=== PATIENT | male | born 1965 | race Hispanic/Latino ===

== ENCOUNTER 2017-07-29 18:20 | Inpatient (IN) | payer BC ==
[~2017-07-29] VITALS: Ht 167.6 cm; Wt 90.7 kg
[2017-07-29 19:04] LABS: EOSINOPHILS # (AUTO) 0.1 (0.0-0.4); HEMATOCRIT 35.9 % (38.2-49.6); HEMOGLOBIN 13.2 g/dL (14.0-18.0); LYMPHOCYTES # (AUTO) 1.8 (1.0-3.2); LYMPHOCYTES % 50.1 % (18.0-39.1); MEAN CORPUSCULAR HEMOGLOBIN 31.7 pg (28-32); MEAN CORPUSCULAR HGB CONC 36.8 g/dL (31-35); MEAN CORPUSCULAR VOLUME 86.3 fL (81-99); MONOCYTES # (AUTO) 0.3 (0.2-0.8); NEUTROPHILS # (AUTO) 1.4 (2.1-6.9); NEUTROPHILS % 40.6 % (38.7-80.0); RED BLOOD COUNT 4.16 x10e6/uL (4.3-5.7); RED CELL DISTRIBUTION WIDTH 13.5 % (11.7-14.4)
[2017-07-29 19:10] LABS: INR 1.03; PLATELET COUNT 3 x10e3/uL (140-360); PROTHROMBIN TIME 12.7 seconds (11.9-14.5)
[2017-07-29 19:11] LABS: PARTIAL THROMBOPLASTIN TIME 24.1 seconds (23.8-35.5)
[2017-07-29 19:21] LABS: ALANINE AMINOTRANSFERASE 64 IU/L (0-55); ALBUMIN 3.8 g/dL (3.5-5.0); ALBUMIN/GLOBULIN RATIO 1.7 (0.8-2.0); ALKALINE PHOSPHATASE 72 IU/L (40-150); ANION GAP 10.9 mmol/L (8-16); BLOOD UREA NITROGEN 21 mg/dL (7-26); BUN/CREATININE RATIO 26 (6-25); CALCIUM 8.8 mg/dL (8.4-10.2); CARBON DIOXIDE 26 mmol/L (22-29); CHLORIDE 105 mmol/L (98-107); CREATININE, SERUM 0.81 mg/dL (0.72-1.25); EST GLOMERULAR FILTRATION RATE > 60 ML/MIN (60-); GLUCOSE 103 mg/dL (74-118); MAGNESIUM 1.8 MG/DL (1.3-2.1); POTASSIUM 3.9 mmol/L (3.5-5.1); SODIUM 138 mmol/L (136-145)
[2017-07-29 19:33] LABS: RBC MORPHOLOGY COMMENT NORMAL
[2017-07-29 19:34] LABS: PLATELET ESTIMATE MARKEDLY DECREASED; PLATELET MORPHOLOGY COMMENT NORMAL
[2017-07-29 19:41] LABS: THYROID STIMULATING HORMONE 3.025 uIU/mL (0.350-4.940)
[2017-07-29] MEDS ORDERED: SODIUM CHLORIDE FLUSH 10 ML SYR INJ PRN (20:00)
[2017-07-29] MEDS ORDERED: ONDANSETRON HCL INJ 2 MG/ML VIAL IV PRN (20:00)
[2017-07-29 20:40] VITALS: BP 132/78
[2017-07-29] MEDS ORDERED: SODIUM CHLORIDE 0.9% 250ML 250 ML ONE (21:35)
[2017-07-30] VITALS (7 sets, daily range): BP systolic 106–130; BP diastolic 55–72
[2017-07-30 06:33] LABS: EOSINOPHILS # (AUTO) 0.1 (0.0-0.4); EOSINOPHILS % 3.1 % (0.0-6.0); HEMATOCRIT 31.8 % (38.2-49.6); HEMOGLOBIN 11.5 g/dL (14.0-18.0); LYMPHOCYTES # (AUTO) 0.9 (1.0-3.2); LYMPHOCYTES % 39.5 % (18.0-39.1); MEAN CORPUSCULAR HEMOGLOBIN 31.9 pg (28-32); MEAN CORPUSCULAR HGB CONC 36.2 g/dL (31-35); MEAN CORPUSCULAR VOLUME 88.1 fL (81-99); MONOCYTES # (AUTO) 0.2 (0.2-0.8); MONOCYTES % 8.3 % (4.4-11.3); NEUTROPHILS # (AUTO) 1.1 (2.1-6.9); NEUTROPHILS % 49.1 % (38.7-80.0); PLATELET COUNT 60 x10e3/uL (140-360); RED BLOOD COUNT 3.61 x10e6/uL (4.3-5.7); RED CELL DISTRIBUTION WIDTH 13.7 % (11.7-14.4)
[2017-07-30 07:00] LABS: ALANINE AMINOTRANSFERASE 58 IU/L (0-55); ALBUMIN 3.4 g/dL (3.5-5.0); ALBUMIN/GLOBULIN RATIO 1.5 (0.8-2.0); ALKALINE PHOSPHATASE 62 IU/L (40-150); ANION GAP 8.7 mmol/L (8-16); BLOOD UREA NITROGEN 20 mg/dL (7-26); BUN/CREATININE RATIO 25 (6-25); CALCIUM 8.2 mg/dL (8.4-10.2); CARBON DIOXIDE 27 mmol/L (22-29); CHLORIDE 106 mmol/L (98-107); CREATININE, SERUM 0.81 mg/dL (0.72-1.25); EST GLOMERULAR FILTRATION RATE > 60 ML/MIN (60-); GLUCOSE 98 mg/dL (74-118); POTASSIUM 3.7 mmol/L (3.5-5.1); SODIUM 138 mmol/L (136-145)
[2017-07-31] VITALS: BP 127/80
[2017-07-31 04:00] VITALS: BP 102/67
--- NOTE | 2017-07-31 04:34 | Consultation ---
DATE OF CONSULTATION: July 30, 2017 REQUESTING PHYSICIAN: Dr. Mariam Ragsdale SERVICE: Hematology-oncology. REASON FOR CONSULTATION: Evaluation and management of patient presented with severe thrombocytopenia and bruises. HISTORY OF PRESENTING ILLNESS: Mr. Marroquin is a very pleasant 52-year-old gentleman with no significant past medical history, who recently noted to have pain in his fingers bilaterally approximately 2 weeks ago. He did not seek medical attention and later on approximately a week ago, he developed bruises all over his body, which gradually got worsened and finally he presented to the primary care provider and underwent evaluation. His lab workup revealed severe thrombocytopenia, subsequently sent to the emergency department for further evaluation. In the ED, he underwent repeat lab work revealing white blood cell count of 3.5, hemoglobin 13.2, hematocrit 35.9, and platelet count of 3000. He was given platelet transfusion with good response with platelet count of 60,000. Hematology-oncology has been consulted to assist with the management. At present, he is lying comfortably, not in acute distress, breathing normally. He denies any nausea, vomiting, fever, chills, headache, blurring of vision, any genitourinary complaints. He also denies any history of rheumatologic disorder. His appetite is good and weight is stable. He denies any recent illness, travel, or sick contact. He also denies taking any [id number] or herbal medications. PAST MEDICAL HISTORY: None. PAST SURGICAL HISTORY: None. SOCIAL HISTORY: He denies history of smoking, alcohol use, or illicit drug use. He is [place] and lives in [place]. ALLERGIES: NO KNOWN DRUG ALLERGIES. CURRENT MEDICATIONS: Reviewed and as per electronic medical record. REVIEW OF SYSTEMS: Fourteen-point review of systems negative except as mentioned above in history of presenting illness. PHYSICAL EXAMINATION: VITAL SIGNS: Reviewed and as per electronic medical record. HEENT: PERRLA. Extraocular movements intact. Head atraumatic, normocephalic. NECK: Supple. CVS: S1 and S2 audible. RESPIRATORY: Decreased bilateral air entry. ABDOMEN: Positive bowel sounds. EXTREMITIES: Negative edema. NEURO: Patient is alert, awake, oriented. SKIN: Scattered bruises and rash on the extremities and in the back. LABORATORY DATA: White blood cell count of 2.2, hemoglobin 11.5, hematocrit 31.8, platelets 60,000. ASSESSMENT AND PLAN: Mr. Marroquin is a very pleasant 52-year-old gentleman with no significant past medical history, presented with severe thrombocytopenia, requiring platelet transfusion. His complete blood cell count also revealed leukopenia, anemia. Differential showed slight lymphocytosis, otherwise unremarkable. Platelet morphology is also normal. I had a lengthy discussion with the patient and his about his current disease status and importance of further workup. This very well could be immune-mediated phenomenon, though pancytopenia is suggestive more of bone marrow disorder. At this point, recommendation would be to get baseline workup including acute hepatitis panel, human immunodeficiency virus, and antinuclear antibody screen. I will also get ultrasound of the abdomen to evaluate liver and spleen size. Depending on the result, will provide further recommendation. Meanwhile, patient needs to be closely monitored for drop in platelet counts again. I will hold off on any treatment specifically steroid for now. As complete blood cell counts continued to stay stable, he may not need treatment or if this is a bone marrow disorder that may interfere with the diagnostic yield. Thank you Dr. Ragsdale for the consult. I will continue to be available. Please call with questions. Job#: [id number]
[2017-07-31 05:52] VITALS: BP 102/67
[2017-07-31 07:01] LABS: EOSINOPHILS # (AUTO) 0.1 (0.0-0.4); EOSINOPHILS % 2.3 % (0.0-6.0); HEMATOCRIT 34.4 % (38.2-49.6); HEMOGLOBIN 12.5 g/dL (14.0-18.0); LYMPHOCYTES # (AUTO) 1.4 (1.0-3.2); LYMPHOCYTES % 52.3 % (18.0-39.1); MEAN CORPUSCULAR HEMOGLOBIN 31.6 pg (28-32); MEAN CORPUSCULAR HGB CONC 36.3 g/dL (31-35); MEAN CORPUSCULAR VOLUME 86.9 fL (81-99); MONOCYTES # (AUTO) 0.2 (0.2-0.8); MONOCYTES % 6.5 % (4.4-11.3); NEUTROPHILS % 38.9 % (38.7-80.0); RED BLOOD COUNT 3.96 x10e6/uL (4.3-5.7); RED CELL DISTRIBUTION WIDTH 13.5 % (11.7-14.4)
[2017-07-31 07:08] LABS: PLATELET COUNT 45 x10e3/uL (140-360)
[2017-07-31 08:00] VITALS: BP 109/62
[2017-07-31 08:11] LABS: HIV 1&2 AB SCREEN NON-REACTIVE (NONREACTIVE)
[2017-07-31 08:43] VITALS: BP 109/62
[2017-07-31 09:23] LABS: ANISOCYTOSIS SLIG; PLATELET ESTIMATE MODERATELY DECREASED; PLATELET MORPHOLOGY COMMENT NORMAL; POIKILOCYTOSIS SLIGHT; RBC MORPHOLOGY COMMENT NORMAL
--- NOTE | 2017-07-31 10:21 | Diagnostic Imaging Report ---
PROCEDURE:ABDOMINAL ULTRASOUND COMPARISON:None. INDICATIONS:ELEVATED LIVER ENZYME FINDINGS: Liver: 14.6 cm in length in the right midclavicular line. Increased hepatic parenchymal echogenicity. No focal mass. Main portal vein: 0.9 cm in caliber. Hepatopedal flow. Gallbladder: No shadowing calculus, wall thickening, or pericholecystic fluid. Common Bile Duct: 0.5 cm in caliber. No echogenic filling defect. Sonographic Albrecht's sign: Reported as negative. Right kidney: 11.9 cm in length. No solid or cystic mass, echogenic calculi, or hydronephrosis. Normal renal cortical echogenicity. Left kidney: 10.4 cm in length. No solid or cystic mass, echogenic calculi, or hydronephrosis. Normal renal cortical echogenicity. Spleen: 11.4 cm in length. Uniform parenchymal echotexture. Pancreas: The visualized portions of the pancreas are normal. Inferior vena cava: Patent. Aorta: Non-aneurysmal. Ascites: None. CONCLUSION: Increased hepatic parenchymal echogenicity compatible with steatosis. Otherwise unremarkable abdominal ultrasound. Dictated by: Rafa Reed M.D. on 07/31/2017 at 10:22 Electronically approved by: Rafa Reed M.D. on 07/31/2017 at 10:22
--- NOTE | 2017-07-31 11:01 | Discharge Summary ---
PRIMARY CARE DOCTOR: Dr. Connie Howard FINAL DIAGNOSIS: Thrombocytopenia. SECONDARY DIAGNOSIS: Pancytopenia. PROCEDURES/STUDIES PERFORMED: Abdominal ultrasound. CONSULTANTS: Dr. Early HISTORY: Per [facility] HOSPITAL COURSE: The patient was admitted with a platelet count of 3. He received 2 units and it went up to 60. Subsequently, the repeat is 45 twenty-four hours later. His HIV is negative. His white blood cell count remained stable around 2600. His hemoglobin is stable around 12. His ELISA is still pending. Hepatitis panel is pending as well. Abdominal ultrasound is pending as well. The patient will follow up with Dr. Early in 2 days for followup with all the results. At that time, we will decide whether he needs a bone marrow biopsy. The patient was seen and examined today. It took 32 minutes total to discharge this patient. CONDITION ON DISCHARGE: Stable. DISCHARGE MEDICATIONS: Please see medication reconciliation form. LIZA REYNAGA M.D. Job#: [id number] RI cc:CONNIE HOWARD MD
--- NOTE | 2017-08-01 00:51 | Progress Note ---
DATE: July 31, 2017 FOLLOWUP NOTE CHIEF COMPLAINT: Patient with pancytopenia, admitted for further workup. He has received 1 jumbo platelet with significant response. Platelet count improved to 45,000. HIV negative. Acute hepatitis panel and ultrasound of abdomen pending. Vital signs reviewed. Case discussed in detail with Dr. Ragsdale and it has been recommended for him to okay to be discharged with followup as an outpatient with me. Patient has been given appointment on Monday. He probably will require bone marrow aspiration biopsy. Job#: [id number]
== END 2017-07-31 12:10 | disposition home or self-care (01) | DRG 810 ==
LOC: ER 18:23 → ERHOLD 20:05 → MED/SURG 20:31
PROVIDERS: ADMIT Internal Medicine; ATTEND Internal Medicine
PROC: 30250R1 (ICD-10-PCS; principal; 2017-07-30)
DX: D61.818 Other pancytopenia (principal); F17.200 Nicotine dependence, unspecified, uncomplicated; R23.3 Spontaneous ecchymoses
CPT/HCPCS: 36415; 76700; 80053; 82270; 83735; 84443; 85025; 85610; 85730; 86039; 86850; 86900; 87390; 99284; G0433; G0435; J7050; P9034